=== PATIENT | male | born 1945 | race Caucasian/White ===

== ENCOUNTER 2016-06-17 10:58 | Observation (INO) | payer OTHER, MEDICARE ==
[2016-06-17] MEDS ORDERED: NS 1,000 ML IV ONE (11:03)
--- NOTE | 2016-06-17 11:21 | CPEKG ---
Heart Rate: 72 RR Interval: 833 P-R Interval: 168 QRSD Interval: 134 QT Interval: 436 QTC Interval: 478 P Baldwin: 6 QRS Baldwin: 85 T Wave Baldwin: 41 EKG Severity - ABNORMAL ECG - EKG Impression: SINUS RHYTHM EKG Impression: VENTRICULAR PREMATURE COMPLEX AMD PACS WELL EKG Impression: RBBB AND LPFB Electronically Signed By: Maximilian Baez 18-Jun-2016 08:21:53
[2016-06-17 11:41] LABS: % IMMATURE GRANULYOCYTES 0.2 % (0.0-1.1); ABSOLUTE IMMATURE GRANULOCYTES 0.01 10^3/uL (0.00-0.10); ADD DIFF? NO; ADD MORPH? NO; ADD SCAN? NO; ATYPICAL LYMPHOCYTE FLAG 10 (0-99); FRAGMENT RBC FLAG 0 (0-99); HEMATOCRIT 45.7 % (40.0-51.0); HEMOGLOBIN 16.3 g/dL (13.7-17.5); LEFT SHIFT FLG 0 (0-99); LIPEMIA HEMOLYSIS FLAG 90 (0-99); MEAN CELL HEMOGLOBIN 32.3 pg (27.9-34.1); MEAN CELL HEMOGLOBIN CONCENTR. 35.7 g/dL (32.4-36.7); MEAN CELL VOLUME 90.7 fL (81.5-99.8); MEAN PLATELET VOLUME 9.2 fL (8.7-11.7); PLATELET CLUMPS FLAG 20 (0-99); PLATELET COUNT 267 10^3/uL (150-400); RED BLOOD CELL COUNT 5.04 10^6/uL (4.40-6.38); RED CELL DISTRIBUTION WIDTH 12.2 % (11.5-15.2)
[2016-06-17] MEDS ORDERED: BUPIVACAINE 0.5% 30 ML SDV ONE (11:41)
[2016-06-17] MEDS ORDERED: HEPARIN 10,000 UNIT/10 ML MDV ONE (11:41)
[2016-06-17] MEDS ORDERED: ISOPROTERENOL HCL 0.2 MG/ML 5ML AMP ONE (11:41)
[2016-06-17] MEDS ORDERED: LIDOCAINE 1% 30 ML SDV ONE (11:41)
[2016-06-17 11:50] LABS: INR 1.03 (0.83-1.16); PROTIME(PATIENT) 13.4 SEC (12.0-15.0)
[2016-06-17 12:19] LABS: ANION GAP 10 mEq/L (8-16); CALCIUM 9.4 mg/dL (8.5-10.4); CARBON DIOXIDE 27 mEq/l (22-31); CHLORIDE 100 mEq/L (97-110); CREATININE 0.8 mg/dL (0.7-1.3); GLOMERULAR FILTRATION RATE > 60; GLUCOSE 98 mg/dL (70-100); MAGNESIUM 1.9 mg/dL (1.6-2.3); POTASSIUM 4.3 mEq/L (3.5-5.2); SODIUM 137 mEq/L (134-144)
[2016-06-17] MEDS ORDERED: fentaNYL 250 MCG/5 ML INJ ONE (12:26)
[2016-06-17] MEDS ORDERED: MIDAZOLAM 2 MG/2 ML VIAL ONE ×2 (12:27→12:34)
[2016-06-17] MEDS ORDERED: PHENYLEPHRINE HCL 100 MCG/ML SYR ONE ×3 (13:20→14:50)
[2016-06-17] MEDS ORDERED: ROCURONIUM 50 MG/5 ML VIAL ONE ×3 (13:44→15:14)
[2016-06-17] MEDS ORDERED: PROPOFOL 200 MG/20 ML VIAL ONE (15:16)
[2016-06-17] MEDS ORDERED: NEOSTIGMINE METHYLSULFATE 5 MG/5 ML SYR ONE (15:23)
[2016-06-17] MEDS ORDERED: GLYCOPYRROLATE 0.2 MG/1 ML VIAL ONE ×2 (15:23)
[2016-06-17] MEDS ORDERED: ACETAMINOPHEN 325 MG TAB PO PRN (15:38)
[2016-06-17] MEDS ORDERED: OXYCODONE/APAP 5/325 TAB PO PRN (15:38)
[2016-06-17] MEDS ORDERED: ONDANSETRON 4 MG/2 ML VIAL IVP PRN (15:38)
[2016-06-17] MEDS ORDERED: NAPROXEN SODIUM 220 MG TAB PO PRN (15:39)
--- NOTE | 2016-06-17 15:51 | CPEKG ---
Heart Rate: 69 RR Interval: 870 P-R Interval: 160 QRSD Interval: 136 QT Interval: 432 QTC Interval: 463 P Milford: 71 QRS Milford: 80 T Wave Milford: 45 EKG Severity - ABNORMAL ECG - EKG Impression: SINUS RHYTHM EKG Impression: PROBABLE LEFT ATRIAL ABNORMALITY EKG Impression: RIGHT BUNDLE BRANCH BLOCK Electronically Signed By: Maximilian Baez 18-Jun-2016 08:22:25
--- NOTE | 2016-06-17 15:52 | EPPROC ---
Electrophysiology Procedure Note: ELECTROPHYSIOLOGIC STUDY AND CATHETER MEDIATED ABLATION OF SLOW/SLOW AV DAVID REENTRY TACHYCARDIA AND ATRIAL FLUTTER PROCEDURES PERFORMED: 37860-30 EP evaluation with RA/RV/LA pace/record, with arrhythmia induction 90898-50 EP evaluation with RA/RV pace record, insert/reposition catheter, with arrhythmia induction 55575 Intracardiac catheter ablation, SVT arrhythmogenic focus Second arrhythmia 87285 3D mapping Fluoroscopy INDICATION: PROCEDURE: Catheters & Anesthesia: The patient arrived in the Electrophysiology Laboratory in the fasting state. The right clavicular region, right groin, and left groin area were prepped and draped in the usual sterile manner. Anesthesiologist Dr. Dieudonne Dc administered general anesthesia. Appropriate non-invasive blood pressure, pulse oximetry and end-tidal CO2 monitoring was established. All catheters were placed percutaneously using the modified Seldinger technique , and advanced into position under fluoroscopic guidance. One Halo catheter was placed along the tricuspid annulus. This needed to be placed with a long Flexicath sheath due to tortuosity of R femoral and iliac veins. One #7 Occitan deflectable octapolar electrode catheter was advanced to the His-bundle position via the left femoral vein (2mm spacing). One #7 Occitan deflectable quadrapolar catheter was advanced to the anteroseptal right ventricle via the right femoral vein. One #7 Occitan deflectable catheter with 10 pairs of electrodes was placed via the right femoral vein into the coronary sinus. The left femoral and iliac veins were also very tortuous. Heparin was given to keep ACT > 200 s. Programmed stimulation was performed from the right atrium, right ventricle and coronary sinus (left atrium). Parahisian pacing demonstrated constant H-A interval with changing V-A intervals and stimulus-A intervals during capture and loss of capture of proximal RBB proving retrograde conduction over AV node. AVNRT was induced easily during infusion of isoproterenol 1 mcg/min. Ventricular extrastimuli delivered during tachycardia without altering antegrade His bundle activation did not advance next atrial potential, indicating that the tachycardia was not utilizing an accessory pathway for retrograde conduction. VA interval was -10 ms. Post entrainment of the tachycardia from the ventricle, there was VAHV response. A #8 Occitan deflectable quadrapolar electrode catheter (2mm-5mm-2mm spacing) with 4 mm tip electrode and sensor for the 3D mapping Carto system was advanced to the right atrium. 3 D mapping of the inter-atrial septum and coronary sinus was performed and location of the AV node was marked. An Agilis sheath was used. Patient had previously documented atrial flutter. Therefore ablation was done along cavotricupsid isthmus at 0630 o'clock as seen in the [place] view. Bidirectional conduction block was achieved across the CT isthmus. Following this, attention was directed to ablating the slow AV david pathway. RF applications were delivered to the region between the tricuspid annulus and the coronary sinus ostium, at the level of the upper edge of the coronary sinus ostium. Junctional rhythm occurred continuously during all of the RF applications. Programmed stimulation was continued post ablation at baseline and during graded doses of isoproterenol upto 4mcg/min. Sustained AVNRT was not inducible. There were no echo beats. The catheters were removed. The long sheath was changed to a short 9 Fr sheath. The patient was transferred to the cardiovascular holding area in stable condition. Vascular access sheaths were removed in the holding area. There were no apparent complications. Results: A. Spontaneous Intervals: Pre ablation SCL 1255 ms AH 70 ms HV 55 ms (Preexisting RBBB) Post ablation SCL 860 ms AH 70 ms HV 55 ms B. Antegrade AV david function (decremental pacing) Pre ablation FPERP 410 ms WBB CL 400 ms Post ablation FPERP 390 ms WBB CL 380 ms C. Retrograde AV david function (decremental pacing) Pre ablation FPERP 340 ms WBB CL 330 ms D. Arrhythmias: Sustained slow/slow AVNRT Cycle length 425 ms, AH interval 390 ms, MARTELL interval 35 ms VA interval -10 ms CONCLUSIONS 1. Atypical (slow/slow) AVNRT 2. Successful ablation of the slow AV david pathway with elimination of 1:1 antegrade conduction over the slow AV david pathway, all retrograde conduction over the slow AV david pathway and the inducibility of AVNRT. 3. Atrial flutter. Ablation of cavotricuspid isthmus achieving bidirectional conduction block across CT isthmus. 4. Very tortuous femoral and iliac veins bilaterally. 5. No complications. Patient Problems: Problems Problem Status Diagnosed Atrial flutter Acute Supraventricular tachycardia Acute
[2016-06-17 17:19] LABS: ANION GAP 10 mEq/L (8-16); CALCIUM 8.3 mg/dL (8.5-10.4); CARBON DIOXIDE 24 mEq/l (22-31); CHLORIDE 104 mEq/L (97-110); CREATININE 0.8 mg/dL (0.7-1.3); GLOMERULAR FILTRATION RATE > 60; GLUCOSE 119 mg/dL (70-100); MAGNESIUM 1.7 mg/dL (1.6-2.3); POTASSIUM 3.9 mEq/L (3.5-5.2); SODIUM 138 mEq/L (134-144)
[2016-06-17] MEDS ORDERED: NICOTINE 21 MG/24 HR PATCH TD SCH (21:30)
[2016-06-17] MEDS: METOPROLOL TARTRATE 25 MG TAB PO SCH (21:43)
[2016-06-18] MEDS ORDERED: ZOLPIDEM TARTRATE 5 MG TAB PO PRN (00:58)
[2016-06-18 05:13] LABS: % IMMATURE GRANULYOCYTES 0.4 % (0.0-1.1); ABSOLUTE IMMATURE GRANULOCYTES 0.04 10^3/uL (0.00-0.10); ADD DIFF? NO; ADD MORPH? NO; ADD SCAN? NO; ATYPICAL LYMPHOCYTE FLAG 0 (0-99); FRAGMENT RBC FLAG 10 (0-99); HEMATOCRIT 42.6 % (40.0-51.0); HEMOGLOBIN 14.8 g/dL (13.7-17.5); LEFT SHIFT FLG 0 (0-99); LIPEMIA HEMOLYSIS FLAG 90 (0-99); MEAN CELL HEMOGLOBIN 31.4 pg (27.9-34.1); MEAN CELL HEMOGLOBIN CONCENTR. 34.7 g/dL (32.4-36.7); MEAN CELL VOLUME 90.4 fL (81.5-99.8); MEAN PLATELET VOLUME 9.5 fL (8.7-11.7); PLATELET CLUMPS FLAG 0 (0-99); PLATELET COUNT 294 10^3/uL (150-400); RED BLOOD CELL COUNT 4.71 10^6/uL (4.40-6.38); RED CELL DISTRIBUTION WIDTH 12.2 % (11.5-15.2)
[2016-06-18 05:21] LABS: INR 1.11 (0.83-1.16); PROTIME(PATIENT) 14.2 SEC (12.0-15.0)
[2016-06-18 05:22] LABS: ANION GAP 9 mEq/L (8-16); CALCIUM 8.8 mg/dL (8.5-10.4); CARBON DIOXIDE 22 mEq/l (22-31); CHLORIDE 103 mEq/L (97-110); CREATININE 0.8 mg/dL (0.7-1.3); GLOMERULAR FILTRATION RATE > 60; GLUCOSE 99 mg/dL (70-100); POTASSIUM 4.9 mEq/L (3.5-5.2); SODIUM 134 mEq/L (134-144)
[2016-06-18 05:33] LABS: TROPONIN I 0.643 ng/mL (0-0.034)
[2016-06-18 05:44] LABS: CREATINE KINASE-MB FRACTION 5.06 ng/mL (0-3.19)
[2016-06-18 06:10] LABS: CK-MB INTERPRETATION POSITIVE (NEGATIVE)
--- NOTE | 2016-06-18 08:53 | CPEKG ---
Heart Rate: 61 RR Interval: 984 P-R Interval: 160 QRSD Interval: 136 QT Interval: 416 QTC Interval: 419 P Waldorf: 70 QRS Waldorf: 89 T Wave [place]f: 37 EKG Severity - ABNORMAL ECG - EKG Impression: SINUS RHYTHM EKG Impression: RBBB AND LPFB Electronically Signed By: Kristian Vicente 19-Jun-2016 00:41:53
[2016-06-18] MEDS ORDERED: CHOLECALCIFEROL VIT D3 1,000 UNITS TAB PO SCH (09:00)
[2016-06-18] MEDS ORDERED: ASPIRIN 81 MG CHEWABLE TAB PO SCH (09:00)
[2016-06-18] MEDS ORDERED: CYANO/VITAMIN B12 1000 MCG TAB PO SCH (09:00)
[2016-06-18 09:02] VITALS: BP 126/78; PULSE 87; RESP 20; TEMP 98; O2SAT 96
--- NOTE | 2016-06-18 09:11 | ECHO ---
[id number] + + [address] : : [place] [address] : : [phone] + + Adult Echocardiographic Report + ------+ :Name: RASHAUN CASILLAS Navya Date: 06/18/2016 07:32 AM : : Hospital Admission Number: [id number] Locatio n: 206: :: 1945 Gender: Male Height: 70 in : :Age: 71 yrs Race: WH Weight: 161 lb : :Reason For Study: Post EP study : : BSA: 1.9 meters 2 : :History: No previous : + ------+ MMode/2D Measurements & Calculations IVSd: 0.89 cm RVDd: 3.9 cm FS: 45.7 % LVOT diam: 1.9 cm LVPWd: 0.97 cm LVIDd: 4.0 cm EDV(Teich): LVOT area: LVIDs: 2.2 cm 71.0 ml 2.8 cm2 ESV(Teich): 15.9 ml EF(Teich): 77.6 % LVLd ap4: 8.1 cm CO(MOD-sp4): EDV(MOD-sp4): 3.0 l/min 79.0 ml SV(MOD-sp4): 53.0 ml LVLs ap4: 6.4 cm ESV(MOD-sp4): 26.0 ml EF(MOD-sp4): 67.1 % Normal Measurement Values: + + :LVIDd (3.5-5.7cm) IVSd (0.6-1.1cm) LVPWd (0.6-1.1cm) Aortic Root (2.0-3.7cm)Left Atrium (1.5-4.0cm): :LV Vol(d) (76-115ml) LV Vol(s) (29-48ml) Ejec Fraction (50-65%)PV Reyes (0.6- 1.2m/s) TV Reyes (0.4-1.0m/s) : :MV E Reyes (0.8-1.0m/s)MV A Reyes (0.3-1.0m/s)LVOT Reyes (0.7-1.2m/s) Asc Ao Reyes ( 0.9-1.8m/s) : + + Time Measurements MM R-R int: 1.1 sec MM HR: 56.0 BPM Doppler Measurements & Calculations MV E max reyes: MV V2 max: Ao mean PG: LV V1 mean P.1 cm/sec 79.3 cm/sec 5.4 mmHg 4.0 mmHg MV A max reyes: MV max PG: Ao V2 mean: LV V1 mean: 52.8 cm/sec 2.5 mmHg 109.4 cm/sec 88.1 cm/sec MV E/A: 1.4 MV V2 mean: Ao V2 VTI: 34.3 cm LV V1 VTI: 28.2 cm MV dec time: 48.1 cm/sec KEVIN(I,D): 2.3 cm2 0.22 sec MV mean P.1 mmHg MV V2 VTI: 33.9 cm MVA(VTI): 2.3 cm2 MR max reyes: SV(LVOT): 78.5 ml PA V2 max: TR max reyes: 304.1 cm/sec 112.7 cm/sec 285.0 cm/sec MR max PG: PA max P.1 mmHgTR max P.0 mmHg 32.5 mmHg RAP systole: 10.0 mmHg RVSP(TR): 42.5 mmHg Left Ventricle The left ventricle is normal in size and function. There is normal left ventricular wall thickness. Ejection Fraction = 65-70%. No regional wall motion abnormalities noted. Right Ventricle The right ventricle is normal in size and function. Atria The left atrial size is normal. The right atrium is moderate to severely dilated. The interatrial septum is intact with no evidence for an atrial septal defect. Mitral Valve The mitral valve is normal in structure and function. There is no mitral valve stenosis. There is trace to mild mitral regurgitation. Tricuspid Valve The tricuspid valve is normal in structure and function. There is no tricuspid stenosis. There is mild to moderate tricuspid regurgitation. Right ventricular systolic pressure is 43mmHg. Aortic Valve The aortic valve is normal in structure and function. There is no aortic stenosis. There is no aortic insufficiency. Pulmonic Valve The pulmonic valve is normal in structure and function. There is no pulmonic valvular stenosis. There is no pulmonic valvular regurgitation. Great Vessels The aortic root is normal size. Pericardium/Pleural There is no pericardial effusion. There is a fat pad seen. Conclusion A complete two-dimensional transthoracic echocardiogram was performed (2D, M-mode, Doppler and color flow Doppler). The left ventricle is normal in size and function. Ejection Fraction = 65-70%. The right atrium is moderate to severely dilated. There is trace to mild mitral regurgitation. There is mild to moderate tricuspid regurgitation. Right ventricular systolic pressure is 43mmHg. The aortic valve is normal in structure and function. There is no pericardial effusion. Final Reading Physician: Kristian Vicente MD electronically signed on 06/18/2016 09:10 AM Ordering Physician: Kristian Vicente Performed By: Mikayla Miner
[2016-06-18] MEDS: METOPROLOL TARTRATE 25 MG TAB PO SCH (09:43)
--- NOTE | 2016-06-18 11:42 | GDS ---
[f rep st] DISCHARGE SUMMARY ADMISSION DIAGNOSES: 1. Paroxysmal atrial flutter. 2. Atrial tachycardia. 3. Right bundle branch block. DISCHARGE DIAGNOSES: 1. Paroxysmal atrial flutter. 2. Atrial tachycardia. 3. Status post electrophysiology study with ablation for atrioventricular brendan reentrant tachycardia and atrial flutter. 4. Right bundle branch block. PROCEDURES: Procedures done during hospital stay: 1. Electrocardiogram. 2. Electrophysiology study. 3. Ablation of the slow atrioventricular pathway to eliminate atrioventricular brendan reentrant tachycardia. 4. Ablation of atrial flutter. 5. Echocardiogram. BRIEF HISTORY: The patient is a 71-year-old male patient with noted history of atrial arrhythmias with noted frequent atrial tachycardia, initially treated with beta-blockers, but had been doing well until recently, and then with recurrence of atrial tachycardia as well as occasional episode of atrial flutter. The patient was referred by his primary life skills coordinator, Dr. Vicente, for evaluation. Discussion about potential medication management versus attempting electrophysiology study was done with the patient and his family, risks and benefits were explained, and patient decided to undergo EP study. HOSPITAL COURSE: Patient was admitted to the C[facility], prepped for procedure, and taken to the electrophysiology lab. There, Dr. Vicente successfully identified slow pathway and atrial flutter, ablating both, no complications. Taken to the CVC postprocedure and ultimately to the PCU overnight where he has been remaining. Patient reports no palpitations overnight, continuous cardiac monitoring showing sinus rhythm with an occasional PAC. Patient denies of any chest pain, shortness of breath. He has been up walking the unit without any difficulties, denying any lightheadedness. No bleeding issues at catheter insertion site. PHYSICAL EXAMINATION: GENERAL APPEARANCE TODAY: A thin, well-groomed, male. He is alert and oriented to person, place, time, and situation. Appears to be under no acute distress. VITAL SIGNS: Current blood pressure is 126/78, heart rate is 87, sinus rhythm on the monitor, respirations are 20, saturation 96% on room air, temperature 36.7 degrees Celsius. HEENT: Head is normocephalic. Lips and tongue are pink and moist with no signs of cyanosis. Conjunctivae are pink. NECK: Trachea is midline, +2 carotid pulses bilateral, no auscultated bruits, no jugular vein distention. RESPIRATORY: Lungs clear to auscultation, no rhonchi, rales or wheezes, no accessory muscle use, no intercostal muscle retraction noted. CARDIAC: Regular rate, regular rhythm. S1, S2. No S3, S4, rub gallop murmur noted. ABDOMEN: Soft, nontender , bowel sounds x4 quadrants, no organomegaly, no palpable masses. SKIN: [place], warm, dry, no cyanosis, no clubbing. No peripheral edema. VASCULAR: +2 carotids bilateral, +2 radials bilateral, +2 posterior tibial pulses bilateral, +1 dorsal pedals bilateral. GROIN: Bilateral groin site catheter insertion sites with no redness, swelling, drainage, ecchymosis, hematoma noted. No auscultated bruits over either site. NEURO: Cranial nerves II through XII grossly intact. Next section. LABORATORY STUDIES: Laboratory studies done today show WBC of 11.05, hemoglobin of 14.8, hematocrit of 42.6, platelet count of 294. INR of 1.1. Sodium 134, potassium 4.9, chloride 103, CO2 22, BUN 16, creatinine 0.8, glucose 99, calcium 9.8. CK 106, CK-MB 5.06, CK-MB percentage 4.8. Troponin 0.643. Note that cardiac enzymes are not elevated which appeared to be expected postablation. STUDIES: Electrophysiology study: As mentioned above. Morning electrocardiogram shows sinus rhythm with right bundle branch block, left posterior fascicular block. Echocardiogram done this morning showed LV of normal size and function, EF of 65 -70%, RA is moderately to severely dilated, yinea-od-abnb MR, ufhb-nu-lbocdtce TR, RVSP was 43 mmHg, no pericardial effusion. DISCHARGE DISPOSITION: Patient will be discharged home in stable condition. He is under activity restrictions, not lifting more than 10 pounds for next week and no strenuous activity for the next 2 weeks. DISCHARGE MEDICATIONS: Please see discharge medication reconciliation sheet: Patient will hold off on aspirin at the current time. He will continue on Eliquis, restarting tomorrow night at 5 mg p.o. daily. No other changes to home medications. DISCHARGE INSTRUCTIONS: 1. Post-electrophysiology ablation discharge instructions were gone over with the patient and his , including activity restrictions, monitoring for signs of infection, bleeding precaution, medication compliancy, and followup. 2. Dr. Vicente would like the patient to undergo a 30-day Holter monitor after EP procedure. Our office has been called and they will arrange for this to be delivered to his house within the next 3-4 days. 3. He has a followup appointment set up with Dr. Vicente on July 17. At the time of discharge, patient and his by both verbalized understanding of all discharge instructions and have no questions. They have been told that if any questions or concerns come up postdischarge, they are to notify our office or return to the hospital. TIME SPENT: Total time spent on discharge greater than 30 minutes. /[id number]/MODL MTDD
== END 2016-06-18 11:30 | disposition home or self-care (01) ==
LOC: FCATH 10:58 → F2W 15:38
PROVIDERS: ADMIT Internal Medicine Cardiovascular Disease; ATTEND Internal Medicine Cardiovascular Disease
PROC: 02563ZZ Destruction of Right Atrium, Percutaneous Approach (ICD-10-PCS; principal; 2016-06-17)
PROC: 02K83ZZ Map Conduction Mechanism, Percutaneous Approach (ICD-10-PCS; principal; 2016-06-17)
DX: I48.92 Unspecified atrial flutter (principal); I47.1 Supraventricular tachycardia; I45.10 Unspecified right bundle-branch block
CPT/HCPCS: 93005; 93306; 93613; 93621; 93623; 93653; 93655; C1731; C1732; C1766; J1644; J2250; J2370; J2704; J2710; J3010

== ENCOUNTER → 2016-07-09 | Outpatient (CLI) | payer OTHER, MEDICARE | LOC: BHFA 16:00 | PROVIDERS: ATTEND Internal Medicine Cardiovascular Disease | DX: I47.1 Supraventricular tachycardia (principal); I48.92 Unspecified atrial flutter ==

== ENCOUNTER → 2016-08-14 | Outpatient (CLI) | payer OTHER, MEDICARE | LOC: BHFA 09:45 | PROVIDERS: ATTEND Internal Medicine Cardiovascular Disease | DX: I48.92 Unspecified atrial flutter (principal); I47.1 Supraventricular tachycardia ==

== ENCOUNTER → 2016-08-25 | Outpatient (CLI) | payer OTHER, MEDICARE ==
[~2016-08-25] MED LIST: GADOBUTROL 10 ML VIAL IVP ONE
[2016-08-25 07:50] LABS: CREATININE 0.8 mg/dL (0.7-1.3); GLOMERULAR FILTRATION RATE > 60
== END ==
LOC: FIMAGING 06:57
PROVIDERS: ATTEND Internal Medicine Cardiovascular Disease
DX: I47.1 Supraventricular tachycardia (principal); I48.92 Unspecified atrial flutter
CPT/HCPCS: 75561; A9585

== ENCOUNTER → 2016-10-09 | Outpatient (CLI) | payer OTHER, MEDICARE | LOC: BHFA 09:45 | PROVIDERS: ATTEND Internal Medicine Cardiovascular Disease | DX: I47.1 Supraventricular tachycardia (principal) ==

== ENCOUNTER 2017-09-17 10:52 | Day surgery (SDC) | payer OTHER, MEDICARE ==
[2017-09-17] MEDS ORDERED: IOPAMIDOL (ISOVUE-300) 100 ML BTL ONE (11:10)
[2017-09-17] MEDS ORDERED: MINERAL OIL 10 ML VIAL ONE (11:10)
[2017-09-17] MEDS ORDERED: fentaNYL 100 MCG/2 ML INJ IVP PRN (11:16)
[2017-09-17] MEDS ORDERED: FLUMAZENIL 0.5 MG/5 ML MDV IVP PRN (11:16)
[2017-09-17] MEDS ORDERED: NALOXONE HCL 0.4 MG/ML INJ IVP PRN (11:16)
[2017-09-17] MEDS ORDERED: MEPERIDINE 25 MG/ML SYR IVP PRN (11:16)
[2017-09-17] MEDS ORDERED: GLUCAGON HCL 1 MG VIAL IVP PRN (11:16)
[2017-09-17] MEDS ORDERED: ALTEPLASE 2 MG VIAL IVP PRN (11:16)
[2017-09-17] MEDS ORDERED: MIDAZOLAM 2 MG/2 ML VIAL IVP PRN (11:16)
[2017-09-17] MEDS ORDERED: PROTAMINE SULFATE 50 MG/5 ML VIAL IVP PRN (11:16)
[2017-09-17] MEDS ORDERED: HEPARIN 10,000 UNIT/10 ML MDV (1,000 UNIT/ML) IVP PRN (11:16)
[2017-09-17] MEDS ORDERED: ceFAZolin 2 GM/SWFI 2 GM/20 ML SYR IVP ONE (11:19)
[2017-09-17] MEDS ORDERED: NS 1,000 ML IV SCH (11:30)
[2017-09-17 12:43] LABS: INR 0.93 (0.83-1.16); PROTIME(PATIENT) 12.7 SEC (12.0-15.0)
[2017-09-17] MEDS ORDERED: MIDAZOLAM 2 MG/2 ML VIAL ONE (12:58)
[2017-09-17] MEDS ORDERED: GLUCAGON HCL 1 MG VIAL ONE (12:58)
[2017-09-17] MEDS ORDERED: fentaNYL 100 MCG/2 ML INJ ONE (12:58)
--- NOTE | 2017-09-17 13:22 | PDGENHP ---
History & Physical Chief Complaint: H&N cancer History of Present Illness: anticipating TF Relevant Physical Exam: nt/nd abdomen Cardiorespiratory Assessment: rrr, nl wob
--- NOTE | 2017-09-17 13:23 | PDPROPOC ---
Sedation Plan of Care ASA Classification: ASA 2 Planned drugs: fentanyl, midazolam Mallampati Score: Class 1 Mallampati Reference Image:
[2017-09-17] MEDS ORDERED: LIDOCAINE 2% JELLY 20 ML (UROJECT) ONE (13:30)
[2017-09-17] MEDS ORDERED: ACETAMINOPHEN 325 MG TAB PO PRN (14:34)
[2017-09-17] MEDS ORDERED: ONDANSETRON 4 MG/2 ML VIAL IVP PRN (14:34)
--- NOTE | 2017-09-17 14:34 | PDRADPN ---
Radiology Procedure Note Date of Procedure: 09/17/17 Radiologist: Perez Wright Anesthesia: IV Sedation Pre-op Diagnosis: enteral feeds needed Post-op Diagnosis: same Indication: cancer Procedure: gastrostomy Finding(s): Three ttacs and 20F Gtube appropriately positioned. Inf/Abcess present in the surg proc area at time of surgery?: No EBL: Minimal Complications: none
[2017-09-17] MEDS ORDERED: LIDOCAINE 1% 300 MG/30 ML SDV ONE (15:19)
[2017-09-17 17:20] VITALS: BP 129/78
== END 2017-09-17 17:40 | disposition home or self-care (01) ==
LOC: FIMAGING 10:52
PROVIDERS: ATTEND Internal Medicine Hematology & Oncology
PROC: 0DH63UZ Insertion of Feeding Device into Stomach, Percutaneous Approach (ICD-10-PCS; principal; 2017-09-17)
DX: Z43.1 Encounter for attention to gastrostomy (principal); C76.0 Malignant neoplasm of head, face and neck
CPT/HCPCS: 49440; 99152; 99153; C1729; C1769; J0690; J1610; J2250; J3010; Q9967

== ENCOUNTER 2017-09-22 14:40 | Inpatient (IN) | payer OTHER, MEDICARE ==
[2017-09-22] MEDS ORDERED: MEPERIDINE 25 MG/ML SYR IVP PRN (15:20)
[2017-09-22] MEDS ORDERED: NALOXONE HCL 0.4 MG/ML INJ IVP PRN (15:20)
[2017-09-22] MEDS ORDERED: fentaNYL 100 MCG/2 ML INJ IVP PRN (15:20)
[2017-09-22] MEDS ORDERED: MIDAZOLAM 2 MG/2 ML VIAL IVP PRN (15:20)
[2017-09-22] MEDS ORDERED: FLUMAZENIL 0.5 MG/5 ML MDV IVP PRN (15:20)
[2017-09-22] MEDS ORDERED: NS 1,000 ML IV SCH (15:30)
[2017-09-22] MEDS ORDERED: IOPAMIDOL (ISOVUE-300) 100 ML BTL ONE (15:53)
[2017-09-22] MEDS ORDERED: LIDOCAINE 1% 300 MG/30 ML SDV ONE (15:53)
[2017-09-22] MEDS ORDERED: ONDANSETRON 4 MG/2 ML VIAL IVP PRN (18:24)
--- NOTE | 2017-09-22 18:32 | PDRADPN ---
Radiology Procedure Note Date of Procedure: 09/22/17 Radiologist: Perez Wright Anesthesia: IV Sedation Pre-op Diagnosis: Five day old Gtube fell out Post-op Diagnosis: same Indication: salvage gtube Procedure: fluoro guided tractogram Finding(s): unable to recannalize. injected contrast did not fill stomach. unable to replace percutaneously Inf/Abcess present in the surg proc area at time of surgery?: No EBL: Minimal Complications: none
--- NOTE | 2017-09-22 19:43 | GHP ---
[f rep st] HISTORY AND PHYSICAL DATE OF ADMISSION: 09/22/2017 CHIEF COMPLAINT: G-tube replacement. 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 Perez Wright of Interventional Radiology who attempted to replace the feeding tube unsuccessfully today. The patient had a feeding tube placed four days ago which accidentally became dislodged today. Dr. Wright attempted to replace the tube, but was unsucces sful. Currently the patient is able to eat, but is scheduled to start radiation treatment for his tonsil ca ncer soon, and is having a feeding tube placed preemptively since it is expected that he will have so me swallowing difficulties with his upcoming treatment. Currently the patient denies any significant abdominal pain. He denies any fevers or chills. Overal l he feels "fine." PAST MEDICAL HISTORY: 1. SVT status post ablation by Dr. Vicente, not currently anticoagulated. 2. 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 PAST SURGICAL HISTORY: SVT ablation. HOME MEDICATIONS: Reviewed. Refer to [email or web address] for details. ALLERGIES: No known drug allergies. SOCIAL HISTORY: He is , and lives in [place] with his . He drinks a glass of wine per ni ixigot. He denies any tobacco or illicit drug use. FAMILY HISTORY: Significant for Paget's disease in his mother. REVIEW OF SYSTEMS: Comprehensive 10-point review of systems was done and is negative, except for as mentioned in the HPI. PHYSICAL EXAM: VITAL SIGNS: Blood pressure 137/86, pulse of 62, respiratory rate 24, O2 saturation 99% on room air. Temperature is 36.6. GENERAL: No acute distress. HEAD: Normocephalic, atraumati c. EYES: PERRLA. MOUTH: Moist mucous membranes. CARDIOVASCULAR: S1, S2. No JVD. No lower extr emity edema. PULMONARY: Lungs are clear. No wheezes, rales, or rhonchi. ABDOMEN: Soft, nontender , nondistended. No guarding or rebound tenderness. There is a bandage over the G-tube site. It is not currently bleeding. EXTREMITIES: No clubbing or cyanosis. NEURO: Cranial nerves 2-12 are jerrell sly intact. No focal motor or sensory deficits. SKIN: Clear, no rashes. DIAGNOSTICS: From 09/21/2017 were reviewed. WBC is 9.4, hemoglobin 14.2, hematocrit 40.4, platelets 260. Sodium was 130, potassium 4.9, chloride 92, BUN 12, creatinine 0.6, glucose 118. LFTs are unr emarkable. ASSESSMENT AND PLAN: This is a 72-year-old male with squamous cell carcinoma of the tonsil with lymp h node involvement who I have been asked to place on observation by Dr. Perez Wright who unsuccessful ly attempted to replace a G-tube today. PLAN: 1. Place on observation. 2. Discussed case with Dr. Ewing who will plan for PEG tube placement tomorrow. 3. I will repeat a CBC and basic metabolic panel in the morning, and monitor for signs and symptoms of peritonitis. 4. The patient requests to be full code status. /[id number]/MODL
[2017-09-22] MEDS: D5W 1/2 NS 1,000 ML IV SCH (20:32)
[2017-09-22] MEDS ORDERED: ALPRAZolam 1 MG TAB PO SCH (21:00)
[2017-09-22] MEDS ORDERED: ACETAMINOPHEN 650 MG SUPP PR PRN (22:13)
[2017-09-22] MEDS: ACETAMINOPHEN 325 MG TAB PO PRN (22:56)
[2017-09-23] MEDS: D5W 1/2 NS 1,000 ML IV SCH (05:07)
--- NOTE | 2017-09-23 05:22 | PDMN ---
Medical Necessity Medical necessity: [facility] IP only surgery; PEG tube replacement
[2017-09-23] MEDS: ACETAMINOPHEN 325 MG TAB PO PRN (08:12)
[2017-09-23] MEDS ORDERED: ceFAZolin 2 GM in NS 100 ML IV ONE (09:32)
[2017-09-23] MEDS ORDERED: PROPOFOL 200 MG/20 ML VIAL ONE (09:45)
[2017-09-23] MEDS ORDERED: LIDOCAINE 2% 5 ML SDV ONE (09:47)
[2017-09-23] MEDS ORDERED: ceFAZolin 2 GM/SWFI 2 GM/20 ML SYR IVP ONE (10:00)
--- NOTE | 2017-09-23 10:16 | GCON ---
[f rep st] CONSULTATION INPATIENT CONSULTATION NOTE REQUESTING PHYSICIANS: Dr. Perez Wright, as well as Dr. Andrey Pace. CHIEF COMPLAINT: G-tube replacement. HISTORY OF PRESENT ILLNESS: Briefly, the patient is a pleasant 72-year-old male with a T2 squamous c ell carcinoma of the tonsil, who underwent PEG tube placement recently. This PEG tube fell out after becoming accidentally dislodged. Attempts from interventional Radiology to replace the tube were un successful. The patient was admitted in order to resolve his feeding tube placement difficulties in the setting of upcoming treatments for his tonsillar tumor, which will lead him to have severe dyspha damien. He is currently swallowing without significant difficulty. Reports he is having some abdominal discomfort in the area of the prior PEG placement. PAST MEDICAL HISTORY: Includes SVT with ablation. He is not on anticoagulation. As well as squamou s cell carcinoma as described above. PAST SURGICAL HISTORY: Includes SVT ablation. MEDICATIONS: Current medications include Tylenol, Xanax, Zofran. SOCIAL HISTORY: Does not smoke cigarettes. FAMILY HISTORY: He has significant history of Paget's disease in his mother. REVIEW OF SYSTEMS: A complete 10-system review was undertaken with the patient. The pertinent posit jhony and negatives are detailed in the history of present illness. ALLERGIES: He has no known drug allergies. PHYSICAL EXAM: GENERAL: This is a well-developed male, in no apparent distress. HEENT: His pupils are equal, round, reactive to light and accommodation. His sclerae are nonicteric. His oropharynx is clear. NECK: Supple without lymphadenopathy. HEART: Regular without murmur. ABDOMEN: Soft, b ut mildly tender in the area of his prior PEG placement. SKIN: Warm and dry without lesions. JOINT S: Show no arthritis. PSYCH: Reveals normal mood and affect. LABORATORY TESTING: There is none for review. ASSESSMENT/PLAN: The patient has had his PEG tube come dislodged. Unfortunately, I was unable to re place it. He is in need of a PEG tube in order to provide enteral feedings during his upcoming throa t cancer therapies. We will organize an endoscopic guided PEG placement. Hopefully through the same tract as the prior IR guided placement. We discussed with the patient that there is slight increase d risk of perforation, bleeding, infection, given the recent interventions. /[id number]/MODL
--- NOTE | 2017-09-23 10:19 | GIREPORT ---
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 Recent IR guided PEG successful, but PEG dislod ged and could not be reintroduced. Providers: Marquis Ewing MD Medicines: Sedation Administered by an Anesthesia Professional, Ancef 2000 mg IV Complications: No immediate complications. Description of Procedure: After obtaining informed consent, the endoscope was passed under direct vision. Throughout the procedure, the patient's blood pressure, pulse, and oxygen saturations were monitored continuously. The Endoscope was intro duced through the mouth, and advanced to the third part of duodenum. The uppe r GI endoscopy was accomplished without difficulty. The patient tolerated th e procedure well. Findings: The examined esophagus was normal. Evidence of a prior IR fixation from recently placed PEG were found in the gastric body. This was characterized by an intact appearance. This area was re-used for placement of the new PEG The entire examined stomach was normal. Placement of an externally miguel vable PEG with 1 T-fastener was successfully completed. The external bumper w as at the 3.0 cm marking on the tube. The examined duodenum was normal. Estimated Blood Loss: Estimated blood loss: none. Post Op Diagnosis: - Normal esophagus. - A prior IR fixation device (3 internal fixation points) from recently placed PEG were found, characterized by an intact appearance. this site was utilized for placement of the new PEG. - Normal stomach. - Normal examined duodenum. - An externally removable PEG placement was successfully completed. - No specimens collected. Recommendation: - Return patient to hospital [facility] for ongoing care. - Please follow the post-PEG recommendations including: Nutrition consu lt for formula and volume, change dressing once per day, dry dressing only , change dressing on top of bumper daily, NPO x4 hrs then water today, ma y use PEG today for meds and water and clean site with soap and water daily a nd dry thoroughly. Attending Participation: I personally performed the entire procedure. Marquis Ewing MD Marquis Ewing MD 09/23/2017 10:19:39 AM This report has been signed electronicallyDaus Gildardo MD Number of Addenda: 0 Note Initiated On: 09/23/2017 9:36 AM [email or web address]
--- NOTE | 2017-09-23 10:22 | PDANEPAE ---
ANE History of Present Illness PEG placement ANE Past Medical History - Cardiovascular History Hx Hypertension: No Hx Arrhythmias: No Hx Chest Pain: No Hx Coronary Artery / Peripheral Vascular Disease: No Hx CHF / Valvular Disease: No Hx Palpitations: No Cardiovascular History Comment: SVT/ABLATION - Pulmonary History Hx COPD: No Hx Asthma/Reactive Airway Disease: No Hx Recent Upper Respiratory Infection: No Hx Oxygen in Use at Home: No Hx Sleep Apnea: No Sleep Apnea Screening Result - Last Documented: Positive - Neurologic History Hx Cerebrovascular Accident: No Hx Seizures: No Hx Dementia: No - Endocrine History Hx Diabetes: No Obesity: no - Renal History Hx Renal Disorders: No - Liver History Hx Hepatic Disorders: No - Neurological & Psychiatric Hx Hx Neurological and Psychiatric Disorders: No - Cancer History Hx Cancer: No - Congenital Disorder History Hx Congenital Disorders: No - GI History Hx Gastrointestinal Disorders: No - Chronic Pain History Chronic Pain: No - Surgical History Prior Surgeries: NONE ANE Review of Systems Review of systems is: negative Review of Systems: - Exercise capacity Exercise capacity: >=4 METS ANE Patient History - Allergies Allergies/Adverse Reactions: No Known Allergies Allergy (Unverified 09/14/17 16:11) - Home Medications Home medications: home medication list seen and reviewed Home Medications: Metoprolol Tartrate [Lopressor 25 mg (*)] 25 mg PO BID 06/17/16 [Last Taken 06/11 0800] Naproxen Sodium [Aleve 220 MG (*)] 220 mg PO Q8 PRN 06/17/16 [Last Taken ] Tadalafil [Cialis] 5 mg PO DAILY PRN 06/17/16 [Last Taken Unknown] ALPRAZolam [Alprazolam] 0.25 mg PO HS PRN 09/22/17 [Last Taken Unknown] Aspirin [Aspirin 81mg (*)] 81 mg PO DAILY 09/22/17 [Last Taken 09/21/17] Escitalopram Oxalate [Lexapro] 5 mg PO HS 09/22/17 [Last Taken 09/21/17] - NPO status NPO Since - Liquids (Date): 09/22/17 NPO Since - Liquids (Time): 13:30 NPO Since - Solids (Date): 09/22/17 NPO Since - Solids (Time): 07:00 - Smoking Hx Smoking Status: Never smoked - Family Anes Hx Family Hx Anesthesia Complications: NONE ANE Labs/Vital Signs - Vital Signs Blood Pressure: 131/76 Heart Rate: 53 Respiratory Rate: 17 O2 Sat (%): 93 Height: 177.8 cm Weight: 72.575 kg ANE Physical Exam - Airway Neck exam: FROM Mallampati Score: Class 1 Mouth exam: normal dental/mouth exam - Pulmonary Pulmonary: no respiratory distress - Cardiovascular Cardiovascular: regular rate and rhythym - ASA Status ASA Status: III ANE Anesthesia Plan Anesthesia Plan: GA with mask Urgent/Emergent Case: Lenora rosas completed preop but documented later for safe timely pt care
--- NOTE | 2017-09-23 10:22 | POSTANESTH ---
Post Anesthetic Evaluation Cardiovascular Status: Normal, Stable Respiratory Status: Normal, Stable Level of Consciousness/Mental Status: Can Participate in Eval Pain Control: Adequate, Prn Tx Ordered Nausea/Vomiting Control: Adequate, Prn Tx Ordered Complications Possibly Related to Anesthesia: None Noted
[2017-09-23] MEDS ORDERED: LR 500 ML IV PRN (10:23)
[2017-09-23] MEDS ORDERED: HYDROCODONE/APAP 5/325 TAB PO PRN (10:23)
[2017-09-23] MEDS ORDERED: ONDANSETRON 4 MG/2 ML VIAL IVP PRN (10:23)
[2017-09-23] MEDS ORDERED: oxyCODONE IR 5 MG TAB PO PRN (10:23)
[2017-09-23] MEDS ORDERED: ALBUTEROL 3 ML DEYVIAL IH PRN (10:23)
[2017-09-23] MEDS ORDERED: NALOXONE HCL 0.4 MG/ML INJ IVP PRN (10:23)
[2017-09-23] MEDS ORDERED: fentaNYL 100 MCG/2 ML INJ IVP PRN (10:23)
[2017-09-23] MEDS ORDERED: ACETAMINOPHEN 500 MG TAB PO PRN (10:23)
[2017-09-23] MEDS ORDERED: PROMETHAZINE HCL 25 MG/ML INJ IVP PRN (10:23)
[2017-09-23] MEDS ORDERED: oxyCODONE IR 5 MG TAB ONE (10:54)
--- NOTE | 2017-09-23 11:05 | SUROPNOTE ---
[facility] Operative Report - Surgery BRIEF POst-OP NOTE PEG PLACEMENT INDICATION: upcoming ENT rads onc therapy to lead to poor swallowing COMPLICATION: none acutely MEDs: 2gm IV ancef, anesthesia for sedation FINDIN. Prior IR/PEG site seen in gastric fundus/body 2. successful placement of egd guided PEG into same area IMPREssION/RECs: 1. OK to dc home today, if feeling well 2. resume prior plans with regard to PEG use and nutrition 3. may need short course of po narcotics, given multiple manipulations in area of PEG, untill healing/inflammation/resolved - will sign off, call with questions
[2017-09-23] MEDS ORDERED: ALPRAZolam 0.25 MG TAB PO PRN (11:49)
--- NOTE | 2017-09-23 12:26 | GDS ---
[f rep st] DISCHARGE SUMMARY DISCHARGE DIAGNOSES: 1. History of supraventricular tachycardia, status post ablation. 2. 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 Dr. Wright with IR attempted to replace the feeding tube yesterday, but this was unsuccessful. Thus, he was admitted overnight for GI consultation. HOSPITAL COURSE BY PROBLEM: 1. Replacement of G-tube: This was dislodged yesterday and unsuccessfully replaced in IR. Dr. Ewing with GI replaced today without issue. We will provide a short course of oxycodone for pain control, as well as schedule Tylenol. Resume the tube feeds as previously planned. 2. History of supraventricular tachycardia, status post ablation by Dr. Vicente. 3. 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 DISPOSITION: Patient is stable for discharge home. MEDICATIONS: New medications: Oxycodone 5 mg p.r.n. PHYSICAL EXAMINATION: VITAL SIGNS: Today, temperature 36.6, blood pressure 143 /81, heart rate in the 50s, respirations 16, 97% on room air. GENERAL: Well- appearing male sitting up in bed in no acute distress. HEENT: PERRLA. EOMI. Oropharynx clear. CV: Bradycardic but regular. No murmurs, gallops, or rubs. LUNGS: Clear. ABDOMEN: PEG tube placement. Mild tenderness. Positive bowel sounds. : No Ragland. MUSCULOSKELETAL: 5/5 upper and lower extremity strength. NEUROLOGIC: 2 through 12 intact. PSYCH: Alert and oriented x3. /[id number]/MODL Time spent on DC > 35 min bedside, educating on pain control, coordinating DC. CHAMP
[2017-09-23 12:57] VITALS: BP 163/84
--- NOTE | 2017-09-23 14:12 | ASMTCMCOM ---
CM Note CM Note Notes: Pt admitted for replacement peg tube. Pt is current with [facility]. Faxed clinicals. Pt to DC today. Date Signed: 09/23/2017 02:11 PM Electronically Signed By:Maryse Fox LCSW
--- NOTE | 2017-09-23 16:16 | ASDISCHSUM ---
Discharge Information Plan Status: Medically Cleared to Leave: Discharge Date:09/23/2017 02:45 PM CM D/C Disposition: ADT D/C Disposition:Home, Routine, Self-Care Projected Discharge Date:09/23/2017 11:00 AM Transportation at D/C: Discharge Delay Reason: Follow-Up Date:09/23/2017 11:00 AM Discharge Slot: Final Diagnosis: Placement Information Referral Type:Home Infusion Referral ID:[id number] Provider Name:[facility] Address 1:[address] Address 2: City:[place] Selection Factors: State:[place] Patient Contact Information Contact Name:FRANCISCO J Relationship: Address:[address] City:[place] Alternate Phone: State/Zip Code:[place] [address] Email: Financial Information Financial Class:Medicare Primary Plan Desc:MEDICARE INPATIENT Primary Plan Number:[id number] Secondary Plan Desc:[employer]ARP/MDR SUPPLEMENT Secondary Plan Number:[id number] Assessment Information [facility] CM Progress Note CM Note CM Note Notes: Pt admitted for replacement peg tube. Pt is current with [facility] clinicals. Pt to DC today. Date Signed: 09/23/2017 02:11 PM Electronically Signed By:Maryse Fox LCSW Intervention Information
[2017-09-23] MEDS ORDERED: NON-FORMULARY NEW DRUG (Escitalopram Oxalate [Lexapro] 5 MG) PO SCH (21:00)
[2017-09-23] MEDS ORDERED: ESCITALOPRAM OXALATE 10 MG TAB PO SCH (21:00)
[2017-09-24] MEDS ORDERED: ASPIRIN 81 MG CHEWABLE TAB PO SCH (09:00)
== END 2017-09-23 14:45 | disposition home or self-care (01) | DRG 394 ==
LOC: FIMAGING 14:40 → F3E 18:24 → F1N 20:11
PROVIDERS: ADMIT Radiology Diagnostic Radiology; ATTEND Radiology Diagnostic Radiology
PROC: 0DH63UZ Insertion of Feeding Device into Stomach, Percutaneous Approach (ICD-10-PCS; principal; 2017-09-23 13:00)
DX: Z43.1 Encounter for attention to gastrostomy (principal); C09.9 Malignant neoplasm of tonsil, unspecified; C77.9 Secondary and unspecified malignant neoplasm of lymph node, unspecified
CPT/HCPCS: B4087; C1769; J0690; J2250; J2704; J3010; Q9967

== ENCOUNTER 2017-11-08 12:13 | Emergency (ER) | payer OTHER, MEDICARE ==
[2017-11-08 12:24] VITALS: BP 126/77
[2017-11-08] MEDS ORDERED: HYDROmorphONE/DILAUDID 2 MG/ML INJ SC ONE (12:40)
--- NOTE | 2017-11-08 12:42 | EDPHY ---
H & P Time Seen by Provider: 11/08/17 12:26 HPI/ROS: CHIEF COMPLAINT: Throat pain HISTORY OF PRESENT ILLNESS: Patient has known squamous cell cancer and received his 33rd radiation treatment this past week ending on . He chemotherapy and then has had left-sided throat pain worse for the last 2 days. This is very similar to his previous radiation episodes except pain today is greater in severity. He has trouble swallowing but this is not really changed from usual. No hoarse voice or difficulty breathing. No fevers or chills. He has some associated left ear pain. REVIEW OF SYSTEMS: Pulmonary: no cough or SOB Abdomen: no vomiting, diarrhea, abdominal pain Musculoskeletal: No facial or neck swelling or neck stiffness Skin: no rash Neuro: no headache Constitutional: no fever PAST MEDICAL HISTORY: Squamous cell cancer as mentioned above, vasectomy, SVT. Gastric feeding tube Social history: Nonsmoker General Appearance: Alert and conversant, cooperative. ENT, Mouth: Normal tympanic membranes bilaterally. No trismus. No stridor or drooling. The posterior pharynx shows short area in his left palate which the patient says is typical. Uvula mid line, no gum swelling, no external facial swelling or redness. Floor of the mouth is not [place]. He can speak normally. Can move neck, does not look toxic. Respiratory: Normal respiratory effort, breath sounds equal, lungs are clear to auscultation. Cardiovascular: Regular rate and rhythm. Neurological: Alert, ambulatory. Emergency Department course/MDM: The patient is been trying liquid hydrocodone which isn't really controlling his symptoms. He wants something stronger so he is given 1 mg subcutaneous Dilaudid, and prescription for oral oxycodone for his feeding tube. He is adamant that he does not want any further diagnostics. He says that this is identical to his reaction to previous treatments in all aspects except for severity. He does not have clinical evidence to suggest that he has an acute ENT infection or is at risk for airway compromise. 1248: Discussed with Son who will have the office call the patient tomorrow and arrange definitive plan for pain control. Smoking Status: Never smoked Constitutional: Initial Vital Signs Temperature (C) 36.7 C 11/08/17 12:23 Heart Rate 66 11/08/17 12:23 Respiratory Rate 16 11/08/17 12:23 Blood Pressure 126/77 H 06/17/18 12:23 O2 Sat (%) 100 11/08/17 12:23 O2 Delivery Mode Room Air Allergies/Adverse Reactions: No Known Allergies Allergy (Unverified 11/08/17 12:21) Home Medications: Medication Instructions Recorded Metoprolol Tartrate [Lopressor 25 25 mg PO BID 06/17/16 mg (*)] Tadalafil [Cialis] 5 mg PO DAILY PRN 06/17/16 Acetaminophen [Tylenol 325mg (*)] 325 - 650 mg PO Q4HRS PRN #0 tab 06/18/16 ALPRAZolam [Alprazolam] 0.25 mg PO HS PRN 09/22/17 Aspirin [Aspirin 81mg (*)] 81 mg PO DAILY 09/22/17 Escitalopram Oxalate [Lexapro] 5 mg PO HS 09/22/17 Vicodin 5-300 mg Tablet 11/08/17 Zolpidem Tartrate 11/08/17 oxyCODONE HCL [Oxycodone HCl] 5 - 10 mg PO Q8 PRN #11 tablet 11/08/17 Medical Decision Making - Data Points Medications Given: Discontinued Medications Hydromorphone HCl (Dilaudid) 1 mg SC EDNOW ONE Stop: 11/08/17 12:41 Last Admin: 11/08/17 12:45 Dose: 1 mg Departure - Departure Disposition: Home, Routine, Self-Care Clinical Impression: Throat pain in adult Condition: Good Instructions: Oxycodone, Rapid Release (By mouth), Hydromorphone (By injection) Additional Instructions: I discussed your case today with Dr. Cline from [facility]. He told me they will call you tomorrow to arrange definitive pain medication management. Please call them tomorrow if you do not hear from them by the early afternoon. Referrals: Robert Christianson MD [Primary Care Provider] - As per Instructions Prescriptions: oxyCODONE HCL [Oxycodone HCl] 5 - 10 mg PO Q8 PRN #11 tablet PRN Reason: throat pain
[2017-11-08] MEDS ORDERED: HYDROmorphONE/DILAUDID 1 MG/ML INJ ONE (12:43)
== END 2017-11-08 12:55 | disposition home or self-care (01) ==
DX: R07.0 Pain in throat (principal); Z79.82 Long term (current) use of aspirin; Z85.828 Personal history of other malignant neoplasm of skin
CPT/HCPCS: 96372; 99284; J1170